=== PATIENT | male | born 2000 | race Caucasian/White ===

== ENCOUNTER 2024-06-11 17:47 | Outpatient (REF) | payer OTHER, SELFPAY ==
--- NOTE | ~2024-06-11 | MR_ITS ---
EXAMINATION: MR KNEE WITHOUT CONTRAST, LEFT CLINICAL INFORMATION: Pain. COMPARISON: None available. TECHNIQUE: MRI of the knee without contrast was performed using routine sequences on a high-field scanner. FINDINGS: MENISCI: Medial Meniscus: Intact Lateral Meniscus: Intact LIGAMENTS: Cruciate: Intact Collateral: Intact EXTENSOR MECHANISM: Intact. The Ivy-Jill index is 1.3. A 1.5 x 1 x 0.6 cm multilocular cyst within the lateral aspect of Hoffa's fat pad appears to arise from the joint, possibly a small ganglion cyst. ARTICULAR CARTILAGE/BONE: Patellofemoral Compartment: A partial-thickness chondral fissure is evident in the medial patellar facet, measuring 1.2 cm in length. Minimal associated surface irregularity. Minimal trochlear morphology. TT-TG distance measures 6 mm, normal. Medial Compartment: Normal. Lateral Compartment: Normal. JOINT FLUID AND BURSAE: No appreciable joint effusion or Tang's cyst. MR/MR knee LT wo con IMPRESSION: 1. Intact ligaments and menisci. 2. 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 3. Borderline patella jona. Electronically signed by: Mahad Portillo MD 06/14/2024 12:41 PM EDT
--- NOTE | ~2024-06-11 | MR_ITS ---
EXAMINATION: MR KNEE WITHOUT CONTRAST, RIGHT CLINICAL INFORMATION: Right knee pain. COMPARISON: None available. TECHNIQUE: MRI of the knee without contrast was performed using routine sequences on a high-field scanner. FINDINGS: MENISCI: Medial Meniscus: Intact. Lateral Meniscus: Intact. LIGAMENTS: Cruciate: Intact. Collateral: Intact. EXTENSOR MECHANISM: Intact. ARTICULAR CARTILAGE/BONE: Patellofemoral Compartment: Intact articular cartilage. Medial Compartment: Intact articular cartilage. Lateral Compartment: Intact articular cartilage. JOINT FLUID AND BURSAE: Trace joint effusion. MR/MR knee RT wo con IMPRESSION: 1. No acute meniscal or ligamentous injury. 2. Trace joint effusion. Electronically signed by: Robby Daniels MD 06/14/2024 12:26 PM EDT
== END 2024-06-11 17:48 | disposition home or self-care (01) ==
LOC: HO.MRI 17:47
PROVIDERS: PCP Pediatrics; Visit Provider Hospitalist
DX: M25.561 Pain in right knee (principal); M25.562 Pain in left knee
CPT/HCPCS: 73721

== ENCOUNTER → 2024-08-10 20:30 | Outpatient (REF) | payer OTHER, SELFPAY | LOC: HO.SL 20:30 | PROVIDERS: PCP Pediatrics; Visit Provider Hospitalist | DX: Z13.89 Encounter for screening for other disorder (principal) ==

== ENCOUNTER 2024-08-18 16:44 | Outpatient (REF) | payer OTHER, SELFPAY | END 2024-08-18 16:45 | disposition home or self-care (01) | LOC: HO.MRI 16:44 | PROVIDERS: PCP Pediatrics; Visit Provider Hospitalist | DX: M54.59 Other low back pain (principal) | CPT/HCPCS: 72148 ==